=== PATIENT | male | born 1995 | race Caucasian/White ===

== ENCOUNTER 2017-04-01 12:22 | Emergency (ER) | payer OTHER ==
[2017-04-01 12:23] VITALS: BMI 21.9
[2017-04-01 12:44] VITALS: BP 132/72; PULSE 88; RESP 17; TEMP 98.2; O2SAT 100
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
== END 2017-04-01 13:57 | disposition home or self-care (01) ==
LOC: H.ER 12:22
DX: B00.9 Herpesviral infection, unspecified (principal); S09.93XA Unspecified injury of face, initial encounter; Y04.0XXA Assault by unarmed brawl or fight, initial encounter; Y92.89 Other specified places as the place of occurrence of the external cause

== ENCOUNTER 2017-05-02 19:48 | Emergency (ER) | payer OTHER ==
[2017-05-02 19:48] VITALS: BMI 21.9
[2017-05-02 19:56] VITALS: BP 190/65; PULSE 76; RESP 16; TEMP 98.3; O2SAT 100
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
== END 2017-05-02 22:09 | disposition home or self-care (01) ==
LOC: H.ER 19:48
DX: S09.90XA Unspecified injury of head, initial encounter (principal); M54.5 Low back pain; Y04.0XXA Assault by unarmed brawl or fight, initial encounter; Y92.89 Other specified places as the place of occurrence of the external cause

== ENCOUNTER 2017-05-03 10:11 | Emergency (ER) | payer OTHER ==
[2017-05-03 10:17] VITALS: BMI 22.5
[2017-05-03 10:18] VITALS: BP 116/63; PULSE 67; RESP 17; TEMP 98.1; O2SAT 97
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
== END 2017-05-03 12:15 | disposition home or self-care (01) ==
LOC: H.ER 10:11
DX: M54.9 Dorsalgia, unspecified (principal)

== ENCOUNTER 2017-09-06 19:09 | Emergency (ER) | payer OTHER ==
[2017-09-06 19:10] VITALS: BMI 22.5
[2017-09-06 19:16] VITALS: BP 150/72; PULSE 85; RESP 18; TEMP 98.4; O2SAT 99
[2017-09-06 20:31] LABS: BASO % 0.7 % (0.0-2.0); EOS # 0.3 K/uL (0.0-0.7); EOS % 5.1 % (0.0-4.0); HEMATOCRIT 38.8 % (35.0-51.0); LYMPH # 1.9 K/uL (1.0-4.3); MEAN CORPUSCULAR HEMOGLOBIN 28.5 pg (27.0-31.0); MEAN CORPUSCULAR HGB CONC 32.8 g/dL (33.0-37.0); MEAN PLATELET VOLUME 7.8 fl (7.2-11.7); MONO # 0.4 K/uL (0.0-0.8); MONO % 7.6 % (0.0-10.0); NEUT # 2.9 K/uL (1.8-7.0); NEUT % 52.6 % (50.0-75.0); RED CELL DISTRIBUTION WIDTH 13.6 % (11.5-14.5); WHITE BLOOD COUNT 5.5 K/uL (4.8-10.8)
[2017-09-06 20:32] LABS: RBC URINE < 1 /hpf (0-3); URINE BILIRUBIN NEGATIVE (NEGATIVE); URINE BLOOD NEGATIVE (NEGATIVE); URINE COLOR YELLOW (YELLOW); URINE GLUCOSE (UA) NEG (Normal); URINE KETONE NEGATIVE (NEGATIVE); URINE LEUKOCYTE ESTERASE NEG Leu/uL (Negative); URINE PROTEIN 30 mg/dL (NEGATIVE); URINE UROBILINOGEN 0.2-1.0 mg/dL (0.2-1.0); WBC URINE < 1 /hpf (0-5)
[2017-09-06 20:43] LABS: ALB/GLOB RATIO 1.5 (1.0-2.1); ALKALINE PHOSPHATASE 63 U/L (38-126); ALT/SGPT 33 U/L (21-72); AST/SGOT 20 U/L (17-59); BILIRUBIN,TOTAL 0.4 mg/dl (0.2-1.3); BLOOD UREA NITROGEN 13 mg/dl (9-20); CALCIUM 8.8 mg/dL (8.4-10.2); CARBON DIOXIDE 25 mmol/L (22-30); CHLORIDE 109 mmol/L (98-107); GFR AFRICAN-AMERICAN > 60; GLUCOSE,RANDOM 89 mg/dL (75-110); POTASSIUM 3.8 MMOL/L (3.6-5.0); SODIUM 143 mmol/l (132-148); TOTAL PROTEIN 7.1 G/DL (6.3-8.2)
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
--- NOTE | 2017-09-07 05:32 | CT ---
PROCEDURE: CT HEAD WITHOUT CONTRAST. HISTORY: Lightheadedness COMPARISON: None available. TECHNIQUE: Axial computed tomography images were obtained through the head/brain without intravenous contrast. Radiation dose: Total exam DLP = 85.57 mGy-cm. This CT exam was performed using one or more of the following dose reduction techniques: Automated exposure control, adjustment of the mA and/or kV according to patient size, and/or use of iterative reconstruction technique. FINDINGS: HEMORRHAGE: No intracranial hemorrhage. BRAIN: No mass effect or edema. No atrophy or chronic microvascular ischemic changes. VENTRICLES: Unremarkable. No hydrocephalus. CALVARIUM: Unremarkable. PARANASAL SINUSES: Unremarkable as visualized. No significant inflammatory changes. MASTOID AIR CELLS: Unremarkable as visualized. No inflammatory changes. OTHER FINDINGS: None. IMPRESSION: No acute intracranial abnormalities. No significant findings to account for the clinical presentation. Concordant results (preliminary interpretation) provided by [facility]. Procedure Completed: 20:57 Preliminary ([facility]) Report: Dictated and Authenticated: 21:17 Final Interpretation: 05:31. September 07, 2017.
--- NOTE | 2017-09-07 12:06 | CARD ---
APPROVED REPORT EKG Measurement Heart [id number] <Conclusion> Normal sinus rhythm
== END 2017-09-06 22:46 | disposition home or self-care (01) ==
LOC: H.ER 19:09
DX: R42 Dizziness and giddiness (principal); J45.909 Unspecified asthma, uncomplicated

== ENCOUNTER 2017-09-07 00:04 | Emergency (ER) | payer OTHER ==
[2017-09-07 00:04] VITALS: BMI 22.5
[2017-09-07 00:40] VITALS: BP 144/71; PULSE 70; RESP 18; TEMP 98.2; O2SAT 97
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
== END 2017-09-07 01:25 | disposition home or self-care (01) ==
LOC: H.ER 00:04
DX: S09.90XA Unspecified injury of head, initial encounter (principal); V43.62XA Car passenger injured in collision with other type car in traffic accident, initial encounter; Y92.410 Unspecified street and highway as the place of occurrence of the external cause; J45.909 Unspecified asthma, uncomplicated

== ENCOUNTER 2017-11-09 11:30 | Emergency (ER) | payer OTHER ==
[2017-11-09 11:30] VITALS: BMI 22.5
[2017-11-09 11:54] VITALS: BP 133/58; PULSE 74; RESP 20; TEMP 98.6; O2SAT 98
--- NOTE | 2017-11-09 12:39 | ED PDOC ---
HPI: Back Time Seen by Provider: 11/09/17 12:24 Chief Complaint (Nursing): Back Pain Chief Complaint (Provider): Back Pain History Per: Patient History/Exam Limitations: no limitations Onset/Duration Of Symptoms: Days (x yesterday) Current Symptoms Are (Timing): Still Present Additional Complaint(s): Mr. Schultz is a 22 year male who presents to the emergency department with neck pain that radiates to back, onset yesterday. Patient states he was playing basketball where he jumped and felt pain to his neck. Patient denies head injury or loss of consciousness. Patient reports he applied icy hot. Patient also reports his father tried cracking his back, but with no relief. Denies taking any medications for pain. PMD: No Family Provider Past Medical History Reviewed: Historical Data, Nursing Documentation, Vital Signs Vital Signs: Last Vital Signs Temp 98.6 F 11/09/17 11:52 Pulse 74 11/09/17 11:52 Resp 20 11/09/17 11:52 BP 133/58 L 11/09/17 11:52 Pulse Ox 98 11/09/17 11:52 - Medical History PMH: Asthma (when child) - Surgical History Surgical History: No Surg Hx - Family History Family History: States: Unknown Family Hx - Immunization History Hx Tetanus Toxoid Vaccination: Yes Hx Influenza Vaccination: No Hx Pneumococcal Vaccination: No - Home Medications Home Medications: Ambulatory Orders Medication Instructions Recorded Amoxicillin/Clavulanate [Augmentin 1 tab PO BID #14 tab 08/16/16 875 MG-125 MG] Ibuprofen [Motrin Tab] 600 mg PO Q8 #30 tab 08/16/16 Oxymetazoline 0.05% [Afrin 0.05%] 1 spr NS Q12H #1 bottle 08/16/16 Amoxicillin/Clavulanate [Augmentin 1 tab PO BID #14 tab 08/17/16 875 MG-125 MG] Oxymetazoline 0.05% [Oxymetazoline 1 ml NS BID #1 bottle 08/17/16 HCl 30 Ml] traMADol [Ultram] 50 mg PO TID #7 tab 08/17/16 Acyclovir 5% [Zovirax 5% Oint] 1 cre TP BID #1 tube 04/01/17 Cyclobenzaprine [Cyclobenzaprine 10 mg PO TID PRN #20 tab 05/03/17 HCl] Naproxen [Naprosyn] 500 mg PO BID #20 tab 05/03/17 Naproxen 1 tab PO Q12 PRN #14 tab 11/09/17 diaZEpam [Valium] 5 mg PO Q6 PRN #2 tab 11/09/17 - Allergies Allergies/Adverse Reactions: Allergies Allergy/AdvReac Type Severity Reaction Status Date / Time apple Allergy throat Verified 11/09/17 11:52 swelling banana Allergy throat Verified 11/09/17 11:52 swelling strawberry Allergy throat Verified 11/09/17 11:52 swelling Review of Systems ROS Statement: Except As Marked, All Systems Reviewed And Found Negative Musculoskeletal: Positive for: Neck Pain, Back Pain Neurological: Negative for: Other (loss of consciousness) Physical Exam - Reviewed Nursing Documentation Reviewed: Yes Vital Signs Reviewed: Yes - Physical Exam Appears: Positive for: Non-toxic Head Exam: Positive for: ATRAUMATIC, NORMAL INSPECTION, NORMOCEPHALIC Skin: Positive for: Normal Color, Warm, Dry Eye Exam: Positive for: Normal appearance ENT: Positive for: Normal ENT Inspection Neck: Negative for: Normal ((+): Tenderness to right trapezius muscle lateral neck with no bony tenderness) Cardiovascular/Chest: Positive for: Regular Rate, Rhythm Respiratory: Positive for: Normal Breath Sounds. Negative for: Respiratory Distress Gastrointestinal/Abdominal: Positive for: Normal Exam Back: Positive for: Normal Inspection Extremity: Positive for: Normal ROM. Negative for: Deformity Neurologic/Psych: Positive for: Alert, Oriented (x 3) - ECG O2 Sat by Pulse Oximetry: 98 (RA) Pulse Ox Interpretation: Normal Medical Decision Making Medical Decision Making: Upon provider evaluation patient is medically stable, and requires no further treatment in the ED at this time. Patient will be discharged with Rx for Naproxen. Counseling was provided and all questions were answered regarding diagnosis and need for follow up with PCP. There is agreement to discharge plan. Return if symptoms persist or worsen. Scribe Attestation: Documented by Manuel Gagnon, acting as a scribe for Enrike Barnes PA-C. Provider Scribe Attestation: All medical record entries made by the Scribe were at my direction and personally dictated by me. I have reviewed the chart and agree that the record accurately reflects my personal performance of the history, physical exam, medical decision making, and the department course for this patient. I have also personally directed, reviewed, and agree with the discharge instructions and disposition. Disposition - Clinical Impression Clinical Impression: Trapezius muscle strain - Patient ED Disposition Is Patient to be Admitted: No - Disposition Referrals: [facility] [Outside] Disposition: Routine/Home Disposition Time: 12:37 Condition: STABLE Prescriptions: diaZEpam [Valium] 5 mg PO Q6 PRN #2 tab PRN Reason: Muscle Spasm Naproxen 1 tab PO Q12 PRN #14 tab PRN Reason: Pain, Moderate (4-7) Instructions: Muscle Strain (ED) Forms: [employer] ([place]), [facility] ED School/Work Excuse
== END 2017-11-09 13:04 | disposition home or self-care (01) ==
LOC: H.ER 11:30
DX: M54.9 Dorsalgia, unspecified (principal); X50.9XXA Other and unspecified overexertion or strenuous movements or postures, initial encounter; Y93.67 Activity, basketball; J45.909 Unspecified asthma, uncomplicated

== ENCOUNTER 2018-02-04 16:03 | Emergency (ER) | payer SELFPAY ==
[2018-02-04 16:03] VITALS: BMI 22.5
[2018-02-04 16:14] VITALS: BP 128/67; PULSE 71; RESP 20; TEMP 97.9; O2SAT 98
--- NOTE | 2018-02-04 16:22 | ED PDOC ---
HPI: General Adult Time Seen by Provider: 02/04/18 16:15 Chief Complaint (Nursing): ENT Problem Chief Complaint (Provider): Nasal congestion, sore throat x 3 days History Per: Patient History/Exam Limitations: no limitations Onset/Duration Of Symptoms: Days Have you had recent travel within the past 21 days to any of the following countries: [place], [place], [place] or [place]?: No Current Symptoms Are (Timing): Still Present Additional Complaint(s): No fever/chills. Pt has not tried anything for symptoms. Pt otherwise feels well. Past Medical History Reviewed: Historical Data, Nursing Documentation, Vital Signs Vital Signs: Last Vital Signs Temp 97.9 F 02/04/18 16:12 Pulse 71 02/04/18 16:12 Resp 20 02/04/18 16:12 BP 128/67 02/04/18 16:12 Pulse Ox 98 02/04/18 16:12 - Medical History PMH: Asthma (when child) - Surgical History Surgical History: No Surg Hx - Family History Family History: States: Unknown Family Hx - Living Arrangements Living Arrangements: With Family - Social History Current smoker - smoking cessation education provided: No - Immunization History Hx Tetanus Toxoid Vaccination: Yes Hx Influenza Vaccination: No Hx Pneumococcal Vaccination: No - Home Medications Home Medications: Ambulatory Orders Medication Instructions Recorded Amoxicillin/Clavulanate [Augmentin 1 tab PO BID #14 tab 08/16/16 875 MG-125 MG] Ibuprofen [Motrin Tab] 600 mg PO Q8 #30 tab 08/16/16 Oxymetazoline 0.05% [Afrin 0.05%] 1 spr NS Q12H #1 bottle 08/16/16 Amoxicillin/Clavulanate [Augmentin 1 tab PO BID #14 tab 08/17/16 875 MG-125 MG] Oxymetazoline 0.05% [Oxymetazoline 1 ml NS BID #1 bottle 08/17/16 HCl 30 Ml] traMADol [Ultram] 50 mg PO TID #7 tab 08/17/16 Acyclovir 5% [Zovirax 5% Oint] 1 cre TP BID #1 tube 04/01/17 Cyclobenzaprine [Cyclobenzaprine 10 mg PO TID PRN #20 tab 05/03/17 HCl] Naproxen [Naprosyn] 500 mg PO BID #20 tab 05/03/17 Naproxen 1 tab PO Q12 PRN #14 tab 11/09/17 diaZEpam [Valium] 5 mg PO Q6 PRN #2 tab 11/09/17 Fexofenadine/Pseudoephedrine 1 each PO BID PRN #12 tab.er.12h 02/04/18 [Anabella-D 12 Hour Tablet] - Allergies Allergies/Adverse Reactions: Allergies Allergy/AdvReac Type Severity Reaction Status Date / Time apple Allergy throat Verified 02/04/18 16:11 swelling banana Allergy throat Verified 02/04/18 16:11 swelling strawberry Allergy throat Verified 11/09/17 11:52 swelling Review of Systems ROS Statement: Except As Marked, All Systems Reviewed And Found Negative Constitutional: Negative for: Fever, Chills ENT: Positive for: Nose Congestion, Throat Pain Physical Exam - Reviewed Nursing Documentation Reviewed: Yes Vital Signs Reviewed: Yes - Physical Exam Appears: Positive for: Well, Non-toxic, No Acute Distress Head Exam: Positive for: ATRAUMATIC, NORMAL INSPECTION, NORMOCEPHALIC Skin: Positive for: Normal Color, Warm, DRY Eye Exam: Positive for: Normal appearance ENT: Positive for: Normal ENT Inspection ((+) post nasal drip) Neck: Positive for: Normal, Painless ROM Cardiovascular/Chest: Positive for: Regular Rate, Rhythm Respiratory: Positive for: CNT, Normal Breath Sounds Gastrointestinal/Abdominal: Positive for: Normal Exam, Soft Back: Positive for: Normal Inspection Extremity: Positive for: Normal ROM Neurologic/Psych: Positive for: Alert, Oriented - ECG O2 Sat by Pulse Oximetry: 98 Disposition - Clinical Impression Clinical Impression: Allergic rhinitis - Patient ED Disposition Is Patient to be Admitted: No Counseled Patient/Family Regarding: Diagnosis, Need For Followup, Rx Given - Disposition Disposition: Routine/Home Disposition Time: 16:22 Condition: STABLE Prescriptions: Fexofenadine/Pseudoephedrine [Anabella-D 12 Hour Tablet] 1 each PO BID PRN #12 tab.er.12h PRN Reason: Cough And Congestion Instructions: Seasonal Allergies in Adults
== END 2018-02-04 16:59 | disposition home or self-care (01) ==
LOC: H.ER 16:03
DX: J30.9 Allergic rhinitis, unspecified (principal)

== ENCOUNTER 2018-02-10 08:04 | Emergency (ER) | payer OTHER ==
[2018-02-10 08:04] VITALS: BMI 22.5
[2018-02-10 08:08] VITALS: TEMP 97.9; O2SAT 98
--- NOTE | 2018-02-10 09:46 | ED PDOC ---
Lower Extremity Pain/Injury Time Seen by Provider: 02/10/18 08:29 Chief Complaint (Nursing): Abnormal Skin Integrity Chief Complaint (Provider): Suture Removal History Per: Patient History/Exam Limitations: no limitations Past Medical History Reviewed: Historical Data, Nursing Documentation, Vital Signs Vital Signs: Last Vital Signs Temp 97.9 F 02/10/18 08:06 Pulse 68 02/10/18 08:06 Resp 20 02/10/18 08:06 BP 105/65 02/10/18 08:06 Pulse Ox 98 02/10/18 08:06 - Medical History PMH: Asthma (when child) - Family History Family History: States: Unknown Family Hx - Social History Current smoker - smoking cessation education provided: Yes Ex-Smoker (has not smoked in the last 12 months): No Drugs: Other ([place]) - Immunization History Hx Tetanus Toxoid Vaccination: Yes Hx Influenza Vaccination: No Hx Pneumococcal Vaccination: No - Home Medications Home Medications: Ambulatory Orders Medication Instructions Recorded Amoxicillin/Clavulanate [Augmentin 1 tab PO BID #14 tab 08/16/16 875 MG-125 MG] Ibuprofen [Motrin Tab] 600 mg PO Q8 #30 tab 08/16/16 Oxymetazoline 0.05% [Afrin 0.05%] 1 spr NS Q12H #1 bottle 08/16/16 Amoxicillin/Clavulanate [Augmentin 1 tab PO BID #14 tab 08/17/16 875 MG-125 MG] Oxymetazoline 0.05% [Oxymetazoline 1 ml NS BID #1 bottle 08/17/16 HCl 30 Ml] traMADol [Ultram] 50 mg PO TID #7 tab 08/17/16 Acyclovir 5% [Zovirax 5% Oint] 1 cre TP BID #1 tube 04/01/17 Cyclobenzaprine [Cyclobenzaprine 10 mg PO TID PRN #20 tab 05/03/17 HCl] Naproxen [Naprosyn] 500 mg PO BID #20 tab 05/03/17 Naproxen 1 tab PO Q12 PRN #14 tab 11/09/17 diaZEpam [Valium] 5 mg PO Q6 PRN #2 tab 11/09/17 Fexofenadine/Pseudoephedrine 1 each PO BID PRN #12 tab.er.12h 02/04/18 [Anabella-D 12 Hour Tablet] Cephalexin [cephalexin] 500 mg PO BID #14 cap 02/10/18 Mupirocin 2% Cream [Bactroban 1 applic EXT BID #1 tube 02/10/18 Cream] Sulfamethoxazole/Trimethoprim 1 tab PO BID #14 tab 02/10/18 [Bactrim SS 400 mg-80 mg] - Allergies Allergies/Adverse Reactions: Allergies Allergy/AdvReac Type Severity Reaction Status Date / Time apple Allergy throat Verified 02/04/18 16:11 swelling banana Allergy throat Verified 02/04/18 16:11 swelling strawberry Allergy throat Verified 11/09/17 11:52 swelling Review of Systems ROS Statement: Except As Marked, All Systems Reviewed And Found Negative Constitutional: Negative for: Fever Musculoskeletal: Negative for: Leg Pain (right) Physical Exam - Reviewed Nursing Documentation Reviewed: Yes Vital Signs Reviewed: Yes - Physical Exam Appears: Positive for: Non-toxic, No Acute Distress Head Exam: Positive for: ATRAUMATIC, NORMOCEPHALIC Extremity: Positive for: Normal ROM, Other (Normal wound, no redness or discharge.). Negative for: Swelling (of right leg.) Neurologic/Psych: Positive for: Alert, Oriented - ECG O2 Sat by Pulse Oximetry: 98 (RA) Pulse Ox Interpretation: Normal Disposition - Clinical Impression Clinical Impression: Rash, Cellulitis of axilla, right - Disposition Referrals: [facility] [Outside] Additional Instructions: Take your medications as instructed. Follow up with your PCP in 2-3 days. Return for worsening 2 days. Prescriptions: Cephalexin [cephalexin] 500 mg PO BID #14 cap Mupirocin 2% Cream [Bactroban Cream] 1 applic EXT BID #1 tube Sulfamethoxazole/Trimethoprim [Bactrim SS 400 mg-80 mg] 1 tab PO BID #14 tab Instructions: Cellulitis and Erysipelas (Skin Infections)
--- NOTE | 2018-02-10 10:17 | ED PDOC ---
Upper Extremity Pain/Injury Time Seen by Provider: 02/10/18 08:29 Chief Complaint (Nursing): Abnormal Skin Integrity Chief Complaint (Provider): Abnormal Skin Integrity History Per: Patient History/Exam Limitations: no limitations Onset/Duration Of Symptoms: Days (x 4) Quality: Burning Additional Complaint(s): 23 years old male presents to the ED with complaints of spread burning rash to the right axilla associated with pain onset 4 days. Patient denies any injuries or the use of new personal products. PMD: non provided Past Medical History Reviewed: Historical Data, Nursing Documentation, Vital Signs Vital Signs: Last Vital Signs Temp 97.9 F 02/10/18 08:06 Pulse 68 02/10/18 08:06 Resp 20 02/10/18 08:06 BP 105/65 02/10/18 08:06 Pulse Ox 98 02/10/18 08:06 - Medical History PMH: Asthma (when child) - Surgical History Surgical History: No Surg Hx - Family History Family History: States: Unknown Family Hx - Social History Current smoker - smoking cessation education provided: Yes Alcohol: None Drugs: Other ([place]) - Immunization History Hx Tetanus Toxoid Vaccination: Yes Hx Influenza Vaccination: No Hx Pneumococcal Vaccination: No - Home Medications Home Medications: Ambulatory Orders Medication Instructions Recorded Amoxicillin/Clavulanate [Augmentin 1 tab PO BID #14 tab 08/16/16 875 MG-125 MG] Ibuprofen [Motrin Tab] 600 mg PO Q8 #30 tab 08/16/16 Oxymetazoline 0.05% [Afrin 0.05%] 1 spr NS Q12H #1 bottle 08/16/16 Amoxicillin/Clavulanate [Augmentin 1 tab PO BID #14 tab 08/17/16 875 MG-125 MG] Oxymetazoline 0.05% [Oxymetazoline 1 ml NS BID #1 bottle 08/17/16 HCl 30 Ml] traMADol [Ultram] 50 mg PO TID #7 tab 08/17/16 Acyclovir 5% [Zovirax 5% Oint] 1 cre TP BID #1 tube 04/01/17 Cyclobenzaprine [Cyclobenzaprine 10 mg PO TID PRN #20 tab 05/03/17 HCl] Naproxen [Naprosyn] 500 mg PO BID #20 tab 05/03/17 Naproxen 1 tab PO Q12 PRN #14 tab 11/09/17 diaZEpam [Valium] 5 mg PO Q6 PRN #2 tab 11/09/17 Fexofenadine/Pseudoephedrine 1 each PO BID PRN #12 tab.er.12h 02/04/18 [Anabella-D 12 Hour Tablet] Cephalexin [cephalexin] 500 mg PO BID #14 cap 02/10/18 Mupirocin 2% Cream [Bactroban 1 applic EXT BID #1 tube 02/10/18 Cream] Sulfamethoxazole/Trimethoprim 1 tab PO BID #14 tab 02/10/18 [Bactrim SS 400 mg-80 mg] - Allergies Allergies/Adverse Reactions: Allergies Allergy/AdvReac Type Severity Reaction Status Date / Time apple Allergy throat Verified 02/04/18 16:11 swelling banana Allergy throat Verified 02/04/18 16:11 swelling strawberry Allergy throat Verified 11/09/17 11:52 swelling Review of Systems ROS Statement: Except As Marked, All Systems Reviewed And Found Negative Skin: Positive for: Rash (to right axilla) Physical Exam - Reviewed Nursing Documentation Reviewed: Yes - Physical Exam Appears: Positive for: Non-toxic, No Acute Distress Head Exam: Positive for: ATRAUMATIC, NORMOCEPHALIC Skin: Positive for: Rash (Diffused eythema to right axilla area with multiple pustules. No absecess) Extremity: Negative for: Tenderness, Swelling Neurologic/Psych: Positive for: Alert, Oriented - ECG O2 Sat by Pulse Oximetry: 98 (RA) Pulse Ox Interpretation: Normal Medical Decision Making Medical Decision Making: Initial impression: cellulitis of right axilla. Scribe Attestation: Documented by Amena Chtaman, acting as a scribe for Anna Valdez MD. Provider Scribe Attestation: All medical record entries made by the Scribe were at my direction and personally dictated by me. I have reviewed the chart and agree that the record accurately reflects my personal performance of the history, physical exam, medical decision making, and the department course for this patient. I have also personally directed, reviewed, and agree with the discharge instructions and disposition. Disposition - Clinical Impression Clinical Impression: Rash, Cellulitis of axilla, right - Patient ED Disposition Is Patient to be Admitted: No Counseled Patient/Family Regarding: Studies Performed, Diagnosis, Need For Followup - Disposition Referrals: [facility] [Outside] Disposition: Routine/Home Disposition Time: 09:00 Condition: GOOD Additional Instructions: Take your medications as instructed. Follow up with your PCP in 2-3 days. Return for worsening 2 days. Prescriptions: Cephalexin [cephalexin] 500 mg PO BID #14 cap Mupirocin 2% Cream [Bactroban Cream] 1 applic EXT BID #1 tube Sulfamethoxazole/Trimethoprim [Bactrim SS 400 mg-80 mg] 1 tab PO BID #14 tab Instructions: Cellulitis and Erysipelas (Skin Infections)
[2018-02-10 10:22] VITALS: BP 110/70; PULSE 72; RESP 18
== END 2018-02-10 10:18 | disposition home or self-care (01) ==
LOC: H.ER 08:04
DX: L03.111 Cellulitis of right axilla (principal); R21 Rash and other nonspecific skin eruption; F17.200 Nicotine dependence, unspecified, uncomplicated; J45.909 Unspecified asthma, uncomplicated

== ENCOUNTER 2018-02-27 14:35 | Emergency (ER) | payer SELFPAY ==
[2018-02-27 14:35] VITALS: BMI 22.5
[2018-02-27 14:49] VITALS: BP 108/66; PULSE 72; RESP 16; TEMP 96; O2SAT 98
[2018-02-27] MEDS ORDERED: PROPARACAINE/FLUORESCEIN SOD 100 DROP/5 ML BOTTLE OU STA (15:23)
--- NOTE | 2018-02-27 15:57 | ED PDOC ---
HPI: Eye Injury/Pain Time Seen by Provider: 02/27/18 14:56 Chief Complaint (Nursing): Eye Problem Chief Complaint (Provider): left eye discomfort History Per: Patient History/Exam Limitations: no limitations Onset/Duration Of Symptoms: Days (x1) Current Symptoms Are (Timing): Still Present Injury To Eye?: Yes Additional Complaint(s): 23 y/o male presents to the ED for a left eye problem. Patient states he was removing his contacts last night when he accidentally scratched his left eye. He states he has not put contacts in either eyes since last night. Patient is complaining of left eye irritation and states he can't open his left eye completely due to sensitivity to light. He denies any vision change. PMD: none Past Medical History Reviewed: Historical Data, Nursing Documentation, Vital Signs Vital Signs: Last Vital Signs Temp 96 F L 02/27/18 14:46 Pulse 72 02/27/18 14:46 Resp 16 02/27/18 14:46 BP 108/66 02/27/18 14:46 Pulse Ox 98 02/27/18 14:46 - Medical History PMH: No Chronic Diseases - Surgical History Surgical History: No Surg Hx - Family History Family History: States: No Known Family Hx - Living Arrangements Living Arrangements: With Family - Social History Current smoker - smoking cessation education provided: Yes Ex-Smoker (has not smoked in the last 12 months): No Alcohol: Social Drugs: Cannabis - Home Medications Home Medications: Ambulatory Orders Medication Instructions Recorded Amoxicillin/Clavulanate [Augmentin 1 tab PO BID #14 tab 08/16/16 875 MG-125 MG] Ibuprofen [Motrin Tab] 600 mg PO Q8 #30 tab 08/16/16 Oxymetazoline 0.05% [Afrin 0.05%] 1 spr NS Q12H #1 bottle 08/16/16 Amoxicillin/Clavulanate [Augmentin 1 tab PO BID #14 tab 08/17/16 875 MG-125 MG] Oxymetazoline 0.05% [Oxymetazoline 1 ml NS BID #1 bottle 08/17/16 HCl 30 Ml] traMADol [Ultram] 50 mg PO TID #7 tab 08/17/16 Acyclovir 5% [Zovirax 5% Oint] 1 cre TP BID #1 tube 04/01/17 Cyclobenzaprine [Cyclobenzaprine 10 mg PO TID PRN #20 tab 05/03/17 HCl] Naproxen [Naprosyn] 500 mg PO BID #20 tab 05/03/17 Naproxen 1 tab PO Q12 PRN #14 tab 11/09/17 diaZEpam [Valium] 5 mg PO Q6 PRN #2 tab 11/09/17 Fexofenadine/Pseudoephedrine 1 each PO BID PRN #12 tab.er.12h 02/04/18 [Anabella-D 12 Hour Tablet] Cephalexin [cephalexin] 500 mg PO BID #14 cap 02/10/18 Mupirocin 2% Cream [Bactroban 1 applic EXT BID #1 tube 02/10/18 Cream] Sulfamethoxazole/Trimethoprim 1 tab PO BID #14 tab 02/10/18 [Bactrim SS 400 mg-80 mg] Tobramycin [Tobrex] 5 ml TOP QID #1 bottle 02/27/18 - Allergies Allergies/Adverse Reactions: Allergies Allergy/AdvReac Type Severity Reaction Status Date / Time apple Allergy throat Verified 02/27/18 14:46 swelling banana Allergy throat Verified 02/27/18 14:46 swelling strawberry Allergy throat Verified 02/27/18 14:46 swelling Review of Systems ROS Statement: Except As Marked, All Systems Reviewed And Found Negative Eyes: Positive for: Other (Left eye irritation). Negative for: Vision Change Neurological: Negative for: Headache, Dizziness Physical Exam - Reviewed Nursing Documentation Reviewed: Yes Vital Signs Reviewed: Yes - Physical Exam Appears: Positive for: Well, Non-toxic, No Acute Distress Head Exam: Positive for: ATRAUMATIC, NORMAL INSPECTION, NORMOCEPHALIC Skin: Positive for: Normal Color. Negative for: Rash Eye Exam: Positive for: EOMI, PERRL, Other (mild conjunctival injection noted to left eye with no periorbital swelling or gross FB) ENT: Positive for: Normal ENT Inspection Neurologic/Psych: Positive for: Alert, Oriented - ECG O2 Sat by Pulse Oximetry: 98 (RA) Pulse Ox Interpretation: Normal Medical Decision Making Medical Decision Making: Time: 14:46 Impression: 23 y/o male with left eye irritation Procedure Note: 2 drops of flucaine applied to left eye. Examination with UV light demonstrates cornea abrasion at 1:00 o'clock. No foreign body noted upon lid eversion. Procedure was tolerated well with no complications. Patient was instructed to refrain from use of contact lenses until seen by meter repairer and cleared to resume use. Will be sent home with prescription for Tobramycin drops. Scribe Attestation: Documented by Randa Chisholm acting as a scribe Madhuri Smith PA-C. MD Scribe Attestation: All medical record entries made by the Scribe were at my direction and personally dictated by me. I have reviewed the chart and agree that the record accurately reflects my personal performance of the history, physical exam, medical decision making, and the department course for this patient. I have also personally directed, reviewed, and agree with the discharge instructions and disposition. Disposition - Clinical Impression Clinical Impression: Corneal abrasion - Patient ED Disposition Is Patient to be Admitted: No Counseled Patient/Family Regarding: Diagnosis, Need For Followup, Rx Given - Disposition Referrals: Naveed Miguel MD [Staff Provider] - Disposition: Routine/Home Disposition Time: 16:13 Condition: STABLE Additional Instructions: APPLY DROPS DIRECTED. TYLENOL OR ADVIL FOR PAIN NEEDED. DO NOT USE CONTACTS UNTIL SEEN BY HOOK LOADER AND CLEARED TO RESUME USE. FOLLOW UP IN 2 -3 DAYS WITH HOOK LOADER. Prescriptions: Tobramycin [Tobrex] 5 ml TOP QID #1 bottle Instructions: Corneal Abrasion (DC) Forms: [employer] ([place])
== END 2018-02-27 16:17 | disposition home or self-care (01) ==
LOC: H.ER 14:35
DX: S05.02XA Injury of conjunctiva and corneal abrasion without foreign body, left eye, initial encounter (principal); Y92.89 Other specified places as the place of occurrence of the external cause

== ENCOUNTER 2018-03-24 02:18 | Emergency (ER) | payer OTHER ==
[2018-03-24 02:19] VITALS: BMI 22.5
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
[2018-03-24 05:12] VITALS: BP 119/68; PULSE 71; RESP 17; TEMP 98.2; O2SAT 100
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
== END 2018-03-24 04:54 | disposition home or self-care (01) ==
LOC: H.ER 02:18
DX: S20.211A Contusion of right front wall of thorax, initial encounter (principal); Y04.0XXA Assault by unarmed brawl or fight, initial encounter; Y92.89 Other specified places as the place of occurrence of the external cause

== ENCOUNTER 2018-03-28 07:28 | Emergency (ER) | payer OTHER ==
[2018-03-28 07:28] VITALS: BMI 22.5
[2018-03-28 07:39] VITALS: TEMP 97.1
[2018-03-28] MEDS ORDERED: Sodium Chloride 0.9% 1,000 ML IV STA (08:03)
[2018-03-28] MEDS ORDERED: Famotidine 20mg/50ml 20 MG/50 ML BAG IVPB ONE ×2 (08:09→08:15)
[2018-03-28 08:28] LABS: BASO # 0.1 K/uL (0.0-0.2); BASO % 0.9 % (0.0-2.0); EOS # 0.2 K/uL (0.0-0.7); EOS % 2.5 % (0.0-4.0); HEMOGLOBIN 13.8 g/dL (12.0-18.0); LYMPH # 2.8 K/uL (1.0-4.3); LYMPH % 40.7 % (20.0-40.0); MEAN CELL VOLUME 83.6 fl (80.0-94.0); MEAN CORPUSCULAR HEMOGLOBIN 29.8 pg (27.0-31.0); MEAN CORPUSCULAR HGB CONC 35.7 g/dL (33.0-37.0); MEAN PLATELET VOLUME 7.1 fl (7.2-11.7); MONO # 0.6 K/uL (0.0-0.8); NEUT # 3.3 K/uL (1.8-7.0); NEUT % 47.9 % (50.0-75.0); NRBC % 0.3 % (0.0-0.0); RBC 4.64 Mil/uL (4.40-5.90); RED CELL DISTRIBUTION WIDTH 14.2 % (11.5-14.5)
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
[2018-03-28 09:03] LABS: ALB/GLOB RATIO 1.5 (1.0-2.1); ALT/SGPT 43 U/L (21-72); AST/SGOT 39 U/L (17-59); BLOOD UREA NITROGEN 17 mg/dl (9-20); CALCIUM 9.7 mg/dL (8.4-10.2); GFR AFRICAN-AMERICAN > 60; GFR NON-AFRICAN AMERICAN > 60; LIPASE 48 U/L (23-300)
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
[2018-03-28 14:13] VITALS: BP 111/59; PULSE 65; RESP 18
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
[2018-03-29 10:42] VITALS: O2SAT 98
== END 2018-03-28 15:05 | disposition home or self-care (01) ==
LOC: H.ER 07:28
DX: R10.9 Unspecified abdominal pain (principal); R11.10 Vomiting, unspecified
CPT/HCPCS: 74176; 80053; 83690; 85025; 96365; 96375; 99283; J2405; J7030

== ENCOUNTER 2018-05-01 02:19 | Emergency (ER) | payer OTHER ==
[2018-05-01 02:20] VITALS: BMI 22.5
[2018-05-01 02:39] VITALS: RESP 18
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
[2018-05-01 05:56] VITALS: BP 121/60; PULSE 60; TEMP 97.5
[2018-05-01 06:12] VITALS: O2SAT 96
--- NOTE | 2018-05-01 08:37 | RAD ---
Date of service: 05/01/2018 HISTORY: rib pain, R sided COMPARISON: Right ribs with chest 03/24/2018. TECHNIQUE: Chest PA and lateral FINDINGS: LUNGS: No active pulmonary disease. PLEURA: No significant pleural effusion identified. No pneumothorax apparent. CARDIOVASCULAR: Normal. OSSEOUS STRUCTURES: No significant abnormalities. VISUALIZED UPPER ABDOMEN: Normal. OTHER FINDINGS: None. IMPRESSION: No interval acute cardiopulmonary disease appreciated.
== END 2018-05-01 06:14 | disposition home or self-care (01) ==
LOC: H.ER 02:19
DX: R07.81 Pleurodynia (principal); F17.200 Nicotine dependence, unspecified, uncomplicated; J45.909 Unspecified asthma, uncomplicated
CPT/HCPCS: 71046; 96372; 99283; J1885

== ENCOUNTER 2018-06-14 15:25 | Emergency (ER) | payer OTHER ==
[2018-06-14 15:26] VITALS: BMI 22.5
[2018-06-14 15:33] VITALS: BP 121/72; PULSE 70; RESP 18; TEMP 98.4; O2SAT 99
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
--- NOTE | 2018-06-14 16:01 | RAD ---
PROCEDURE: Right Hand Radiographs. HISTORY: trauma COMPARISON: None. FINDINGS: BONES: Normal. No fracture. JOINTS: Normal. No osteoarthritic changes. SOFT TISSUES: Normal. OTHER FINDINGS: None. IMPRESSION: Normal right hand radiographs.
== END 2018-06-14 16:20 | disposition home or self-care (01) ==
LOC: H.ER 15:25
DX: S60.229A Contusion of unspecified hand, initial encounter (principal); S63.90XA Sprain of unspecified part of unspecified wrist and hand, initial encounter; F17.200 Nicotine dependence, unspecified, uncomplicated; Y09 Assault by unspecified means

== ENCOUNTER 2018-06-16 14:32 | Emergency (ER) | payer OTHER ==
[2018-06-16 14:32] VITALS: BMI 22.5
[2018-06-16 14:38] VITALS: BP 110/65; PULSE 68; RESP 18; TEMP 98; O2SAT 100
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
== END 2018-06-16 15:00 | disposition home or self-care (01) ==
LOC: H.ER 14:32
DX: S60.221A Contusion of right hand, initial encounter (principal); W22.8XXA Striking against or struck by other objects, initial encounter; Y92.89 Other specified places as the place of occurrence of the external cause

== ENCOUNTER 2018-07-06 13:37 | Emergency (ER) | payer OTHER ==
[2018-07-06 13:37] VITALS: BMI 22.5
[2018-07-06 13:48] VITALS: BP 117/58; PULSE 76; RESP 18; TEMP 98.1; O2SAT 97
--- NOTE | 2018-07-06 14:02 | ED PDOC ---
HPI: General Adult Time Seen by Provider: 07/06/18 13:51 Chief Complaint (Nursing): Medical Clearance Chief Complaint (Provider): Chlamydia exposure History Per: Patient History/Exam Limitations: no limitations Onset/Duration Of Symptoms: Hrs (earlier today) Current Symptoms Are (Timing): Still Present Additional Complaint(s): 23 year old male presents to the ED for evaluation of exposure to chlamydia. Patient's girlfriend is currently in the ED being treated for chlamydia which she was diagnosed with earlier today; gonorrhea was negative. He reports wanting treatment as well. Denies other sexual partners, penile discharge, dysuria, and penile lesions. PMD: none provided Past Medical History Reviewed: Historical Data, Nursing Documentation, Vital Signs Vital Signs: Last Vital Signs Temp 98.1 F 07/06/18 13:45 Pulse 76 07/06/18 13:45 Resp 18 07/06/18 13:45 BP 117/58 L 07/06/18 13:45 Pulse Ox 97 07/06/18 13:45 - Medical History PMH: Asthma (when child) - Surgical History Surgical History: No Surg Hx - Family History Family History: States: Unknown Family Hx - Immunization History Hx Tetanus Toxoid Vaccination: Yes Hx Influenza Vaccination: No Hx Pneumococcal Vaccination: No - Home Medications Home Medications: Ambulatory Orders Medication Instructions Recorded Naproxen 500 mg PO BID #30 tab 03/24/18 Lidocaine 1 each TP DAILY #10 adh..patch 05/01/18 - Allergies Allergies/Adverse Reactions: Allergies Allergy/AdvReac Type Severity Reaction Status Date / Time apple Allergy throat Verified 07/06/18 13:44 swelling banana Allergy throat Verified 07/06/18 13:44 swelling Review of Systems ROS Statement: Except As Marked, All Systems Reviewed And Found Negative Genitourinary Male: Negative for: Dysuria, Penile Discharge, Rash Physical Exam - Reviewed Nursing Documentation Reviewed: Yes Vital Signs Reviewed: Yes - Physical Exam Appears: Positive for: No Acute Distress Head Exam: Positive for: ATRAUMATIC, NORMOCEPHALIC Skin: Positive for: Normal Color, Warm, Dry. Negative for: Rash Eye Exam: Positive for: Normal appearance Cardiovascular/Chest: Positive for: Regular Rate, Rhythm Respiratory: Positive for: Normal Breath Sounds. Negative for: Accessory Muscle Use, Respiratory Distress Gastrointestinal/Abdominal: Positive for: Normal Exam, Soft. Negative for: Tenderness Male Genital Exam: Positive for: other (deferred) Neurologic/Psych: Positive for: Alert, Oriented (x3) - ECG O2 Sat by Pulse Oximetry: 97 (RA) Pulse Ox Interpretation: Normal Medical Decision Making Medical Decision Making: Time: 1352 Initial Impression: chlamydia exposure Initial Plan: --Zithromax 1000mg PO --Chlamydia/GC RNA,TMA --Pt advised to follow up with PMD for further STD and HIV testing. Informed to abstain from sexual contact for one week. Scribe Attestation: Documented by Avis Thomason, acting as a scribe for Tamanna Garcia PA-C. Provider Scribe Attestation: All medical record entries made by the Scribe were at my direction and personally dictated by me. I have reviewed the chart and agree that the record accurately reflects my personal performance of the history, physical exam, medical decision making, and the department course for this patient. I have also personally directed, reviewed, and agree with the discharge instructions and disposition. Disposition - Clinical Impression Clinical Impression: Chlamydia contact - Disposition Referrals: [facility] [Outside] Disposition: Routine/Home Disposition Time: 14:42 Condition: GOOD Additional Instructions: no sexual contact x 1 week, partners must be treated Instructions: General (DC), Chlamydia (DC) Forms: [employer] (Telugu)
== END 2018-07-06 15:00 | disposition home or self-care (01) ==
LOC: H.ER 13:37
DX: Z20.2 Contact with and (suspected) exposure to infections with a predominantly sexual mode of transmission (principal)

== ENCOUNTER 2018-08-29 14:15 | Emergency (ER) | payer OTHER ==
[2018-08-29 14:15] VITALS: BMI 22.5
[2018-08-29 14:35] VITALS: BP 112/69; PULSE 68; RESP 18; TEMP 97; O2SAT 98
--- NOTE | 2018-08-29 15:54 | ED PDOC ---
Lower Extremity Pain/Injury Time Seen by Provider: 08/29/18 15:24 Chief Complaint (Nursing): Lower Extremity Problem/Injury Chief Complaint (Provider): Lower Extremity Problem/Injury History Per: Patient History/Exam Limitations: no limitations Onset/Duration Of Symptoms: Days (x1 week ) Current Symptoms Are (Timing): Still Present Additional Complaint(s): Antoine Ramos is a 23 year old male with a past medical history of asthma, who presents to the emergency department complaining of x1 week of right knee pain. Patient states that he has had no direct injury or trauma and that the pain is worsened with walking and range of motion. He denies taking any medications for the pain. 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 Past Medical History Reviewed: Historical Data, Nursing Documentation, Vital Signs Vital Signs: Last Vital Signs Temp 97.0 F L 08/29/18 14:34 Pulse 68 08/29/18 14:34 Resp 18 08/29/18 14:34 BP 112/69 08/29/18 14:34 Pulse Ox 98 08/29/18 14:34 - Medical History PMH: Asthma (when child) - Surgical History Surgical History: No Surg Hx - Family History Family History: States: Unknown Family Hx - Immunization History Hx Tetanus Toxoid Vaccination: Yes Hx Influenza Vaccination: No Hx Pneumococcal Vaccination: No - Home Medications Home Medications: Ambulatory Orders Medication Instructions Recorded Naproxen 500 mg PO BID #30 tab 03/24/18 Lidocaine 1 each TP DAILY #10 adh..patch 05/01/18 Ibuprofen [Motrin Tab] 600 mg PO TID PRN #15 tab 08/29/18 - Allergies Allergies/Adverse Reactions: Allergies Allergy/AdvReac Type Severity Reaction Status Date / Time apple Allergy throat Verified 08/29/18 14:34 swelling banana Allergy throat Verified 08/29/18 14:34 swelling Review of Systems ROS Statement: Except As Marked, All Systems Reviewed And Found Negative Musculoskeletal: Positive for: Other (Right knee pain ) Physical Exam - Reviewed Nursing Documentation Reviewed: Yes Vital Signs Reviewed: Yes - Physical Exam Appears: Positive for: Non-toxic, No Acute Distress Head Exam: Positive for: ATRAUMATIC, NORMOCEPHALIC Skin: Positive for: Normal Color, Warm, Dry Cardiovascular/Chest: Positive for: Regular Rate, Rhythm. Negative for: Murmur Respiratory: Positive for: Normal Breath Sounds. Negative for: Respiratory Distress Extremity: Positive for: Normal ROM, Tenderness (anterior and superior aspect of right knee ), Swelling (anterior and superior aspect of right knee). Negative for: Calf Tenderness - ECG O2 Sat by Pulse Oximetry: 98 (RA) Pulse Ox Interpretation: Normal Medical Decision Making Medical Decision Making: Time: 15:42 Plan: --Motrin 600 mg PO --X-ray of right knee X-ray is shown to be normal. Patient's right knee was immobilized with ELSI wrap. crutches given with instruction. Patient was referred to see a Dr. Prieto, orthopedist. Scribe Attestation: Documented by Marcelino Daly, acting as a scribe for Tamanna Garcia PA-C. Provider Scribe Attestation: All medical record entries made by the Scribe were at my direction and personally dictated by me. I have reviewed the chart and agree that the record accurately reflects my personal performance of the history, physical exam, medical decision making, and the department course for this patient. I have also personally directed, reviewed, and agree with the discharge instructions and disposition. Disposition - Clinical Impression Clinical Impression: Knee pain - Patient ED Disposition Is Patient to be Admitted: No Counseled Patient/Family Regarding: Studies Performed, Diagnosis, Need For Followup, Rx Given - Disposition Referrals: Sanjay Cartwright MD [Staff Provider] - Disposition: Routine/Home Disposition Time: 16:57 Condition: STABLE Prescriptions: Ibuprofen [Motrin Tab] 600 mg PO TID PRN #15 tab PRN Reason: Pain, Moderate (4-7) Instructions: Knee Pain (DC) Forms: [employer] (Sao Tomean), [facility] ED School/Work Excuse
--- NOTE | 2018-08-29 18:04 | RAD ---
Date of service: 08/29/2018 PROCEDURE: Right Knee Radiographs. HISTORY: Pain. No history of recent/ related trauma provided COMPARISON: None. FINDINGS: BONES: Normal. No fracture. JOINTS: Normal. No osteoarthritis. JOINT EFFUSION: None. OTHER FINDINGS: None. IMPRESSION: Normal radiographs of the right knee.
== END 2018-08-29 17:08 | disposition home or self-care (01) ==
LOC: H.ER 14:15
DX: M25.561 Pain in right knee (principal)

== ENCOUNTER 2018-09-10 15:29 | Emergency (ER) | payer OTHER ==
[2018-09-10 15:29] VITALS: BMI 22.5
[2018-09-10 15:40] VITALS: RESP 16; TEMP 97.7
--- NOTE | 2018-09-10 16:14 | ED PDOC ---
Lower Extremity Pain/Injury Time Seen by Provider: 09/10/18 16:09 Chief Complaint (Nursing): Lower Extremity Problem/Injury Chief Complaint (Provider): Right Knee Pain History Per: Patient History/Exam Limitations: no limitations Onset/Duration Of Symptoms: Days (14 ) Current Symptoms Are (Timing): Still Present Severity: Mild Pain Scale Rating Of: 3 - Knee Description Of Injury: Other (Pt presents to the ED complaining of persisitent medial knee pain on the right knee; pt has been seen and treated in this ED for the same ailment within the last 10 days. 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 Pt denies other complaints, injuries and is currently using OTC medications for relief) Past Medical History Reviewed: Historical Data, Nursing Documentation, Vital Signs Vital Signs: Last Vital Signs Temp 97.7 F 09/10/18 15:38 Pulse 85 09/10/18 15:38 Resp 16 09/10/18 15:38 BP 114/65 09/10/18 15:38 Pulse Ox 99 09/10/18 15:38 - Medical History PMH: Asthma (when child) Denies: Chronic Kidney Disease - Family History Family History: States: Unknown Family Hx - Immunization History Hx Tetanus Toxoid Vaccination: Yes Hx Influenza Vaccination: No Hx Pneumococcal Vaccination: No - Home Medications Home Medications: Ambulatory Orders Medication Instructions Recorded Naproxen 500 mg PO BID #30 tab 03/24/18 Lidocaine 1 each TP DAILY #10 adh..patch 05/01/18 Ibuprofen [Motrin Tab] 600 mg PO TID PRN #15 tab 08/29/18 Diclofenac Sodium [Voltaren] 75 mg PO BID #20 tab 09/10/18 - Allergies Allergies/Adverse Reactions: Allergies Allergy/AdvReac Type Severity Reaction Status Date / Time apple Allergy throat Verified 08/29/18 14:34 swelling banana Allergy throat Verified 08/29/18 14:34 swelling Review of Systems ROS Statement: Except As Marked, All Systems Reviewed And Found Negative Musculoskeletal: Positive for: Leg Pain (right knee- medial side) Physical Exam - Reviewed Nursing Documentation Reviewed: Yes Vital Signs Reviewed: Yes - Physical Exam Appears: Positive for: Well, Non-toxic, No Acute Distress Head Exam: Positive for: ATRAUMATIC, NORMAL INSPECTION Skin: Positive for: Normal Color, Warm, Dry, Diaphoresis Neck: Positive for: Normal, Painless ROM, Supple. Negative for: Decreased ROM Cardiovascular/Chest: Positive for: Regular Rate, Rhythm, Chest Non Tender. Negative for: Edema, Gallop, Bradycardia, Tachycardia, Friction Rub Respiratory: Positive for: Normal Breath Sounds. Negative for: Decreased Breath Sounds, Accessory Muscle Use, Crackles, Rales, Stridor, Wheezing, Respiratory Distress, Plerual Rub Pulses-Carotid (L): 2+ Pulses-Carotid (R): 2+ Pulses-Radial (L): 2+ Pulses-Radial (R): 2+ Extremity: Positive for: Normal ROM, Tenderness (to the right medial knee), Other (anterior and posterior drawer test negative; appley grind positive on a medial roll; medial collateral ligament is tight and does not flex). Negative for: Pedal Edema, Deformity, Swelling DTR - Knee (R): 2+ DTR - Knee (L): 2+ - ECG O2 Sat by Pulse Oximetry: 99 Medical Decision Making Medical Decision Making: discussed the limitiations of the ED Pt had xray of knee last week and it was negative; pt will be referred to a specialist and given diclofenac and flexeril for relief Disposition - Clinical Impression Clinical Impression: Acute knee pain - Patient ED Disposition Is Patient to be Admitted: No Doctor Will See Patient In The: Office Counseled Patient/Family Regarding: Studies Performed, Diagnosis, Need For Followup - Disposition Referrals: Sanjay Cartwright MD [Staff Provider] - Disposition: Routine/Home Disposition Time: 17:03 Condition: STABLE Prescriptions: Diclofenac Sodium [Voltaren] 75 mg PO BID #20 tab Instructions: Knee Pain (DC), Knee Pain Forms: [facility] (Bulgarian), [facility] ED School/Work Excuse
[2018-09-10 17:31] VITALS: BP 110/60; PULSE 82; O2SAT 100
== END 2018-09-10 17:31 | disposition home or self-care (01) ==
LOC: H.ER 15:29
DX: M25.561 Pain in right knee (principal)
CPT/HCPCS: 96372; 99283; J1100; J1885

== ENCOUNTER 2018-12-18 00:21 | Emergency (ER) | payer OTHER ==
[2018-12-18 00:21] VITALS: BMI 22.5
[2018-12-18 00:26] VITALS: BP 130/65; PULSE 75; RESP 16; TEMP 98.2; O2SAT 98
[2018-12-18] MEDS ORDERED: Sodium Chloride 0.9% 1,000 ML IV STA (01:07)
--- NOTE | 2018-12-18 01:27 | ED PDOC ---
HPI: Abdomen Time Seen by Provider: 12/18/18 00:30 Chief Complaint (Nursing): Abdominal Pain Chief Complaint (Provider): Abdominal Pain History Per: Patient History/Exam Limitations: no limitations Onset/Duration Of Symptoms: Hrs (23:00) Additional Complaint(s): 23 y/o male with no significant PMHx presents with vomiting and abdominal pain onset at 23:00 tonight. Patient reports symptoms started after he ate his dinner of fried chicken and [employer] fries. Patient reports associated dizziness. He states he has been having episodes like this regularly for the past few months but has not sought medical care till now. Denies fever, diarrhea, cough, or chest pain. Patient additionally complains of some swelling to his right hand after punching a door a while back. Past Medical History Reviewed: Historical Data, Nursing Documentation, Vital Signs Vital Signs: Last Vital Signs Temp 98.2 F 12/18/18 00:24 Pulse 75 12/18/18 00:24 Resp 16 12/18/18 00:24 BP 130/65 12/18/18 00:24 Pulse Ox 98 12/18/18 00:24 - Medical History PMH: Asthma (when child) Denies: Chronic Kidney Disease - Surgical History Surgical History: No Surg Hx - Family History Family History: States: Unknown Family Hx - Social History Current smoker - smoking cessation education provided: No Alcohol: None Drugs: Denies - Immunization History Hx Tetanus Toxoid Vaccination: Yes Hx Influenza Vaccination: No Hx Pneumococcal Vaccination: No - Home Medications Home Medications: Ambulatory Orders Medication Instructions Recorded Naproxen 500 mg PO BID #30 tab 03/24/18 Lidocaine 1 each TP DAILY #10 adh..patch 05/01/18 Ibuprofen [Motrin Tab] 600 mg PO TID PRN #15 tab 08/29/18 Diclofenac Sodium [Voltaren] 75 mg PO BID #20 tab 09/10/18 Esomeprazole Magnesium [Nexium] 20 mg PO QAM #30 ecc 12/18/18 Ondansetron ODT [Zofran ODT] 4 mg PO Q6 PRN #8 odt 12/18/18 - Allergies Allergies/Adverse Reactions: Allergies Allergy/AdvReac Type Severity Reaction Status Date / Time apple Allergy throat Verified 08/29/18 14:34 swelling banana Allergy throat Verified 08/29/18 14:34 swelling Review of Systems ROS Statement: Except As Marked, All Systems Reviewed And Found Negative Constitutional: Negative for: Fever Cardiovascular: Negative for: Chest Pain Respiratory: Negative for: Cough Gastrointestinal: Positive for: Nausea, Vomiting, Abdominal Pain. Negative for: Diarrhea Physical Exam - Reviewed Nursing Documentation Reviewed: Yes Vital Signs Reviewed: Yes - Physical Exam Appears: Positive for: Well, Non-toxic, No Acute Distress Head Exam: Positive for: ATRAUMATIC, NORMAL INSPECTION, NORMOCEPHALIC Skin: Positive for: Normal Color, Warm, DRY Eye Exam: Positive for: EOMI, Normal appearance, PERRL ENT: Positive for: Normal ENT Inspection Neck: Positive for: Normal, Painless ROM Cardiovascular/Chest: Positive for: Regular Rate, Rhythm. Negative for: Murmur Respiratory: Positive for: Normal Breath Sounds. Negative for: Respiratory D istress Gastrointestinal/Abdominal: Positive for: Tenderness (RUQ) Back: Positive for: Normal Inspection Extremity: Positive for: Normal ROM, Swelling (3rd metacarpal of right hand). Negative for: Pedal Edema, Deformity Neurological/Psych: Positive for: Awake, Alert, Normal Tone. Negative for: Mot or/Sensory Deficits - Laboratory Results Result Diagrams: 12/18/18 01:41 12/18/18 01:41 - ECG O2 Sat by Pulse Oximetry: 98 (RA) Pulse Ox Interpretation: Normal Medical Decision Making Medical Decision Making: Time: 01:07 Impression: 23 y/o with RUQ tenderness, nausea and vomiting Initial Plan: * Labs * IV Fluids * Toradol 30 mg * Zofran 4 mg * US Gallbladder 02:59 US Gallbladder Findings: Liver measures 16.6 cm. Normal gallbladder wall thickness measuring 1.8 mm. No evidence of cholelithiasis. Nondilated common bile duct measuring 4.1 mm. Unremarkable pancreas. Unremarkable IAC. Unremarkable aorta. Unremarkable right kidney. Impression: Unremarkable exam. 04:00 Labs no clinically significant abnormalities. Patient is stable for discharge. Diagnosis is gastritis. Scribe Attestation: Documented by Zac Sanderson, acting as a scribe forFelipe Lundberg MD. Provider Scribe Attestation: All medical record entries made by the Scribe were at my direction and personally dictated by me. I have reviewed the chart and agree that the record accurately reflects my personal performance of the history, physical exam, medical decision making, and the department course for this patient. I have also personally directed, reviewed, and agree with the discharge instructions and disposition. Disposition - Clinical Impression Clinical Impression: Gastritis - Patient ED Disposition Is Patient to be Admitted: No - Disposition Referrals: Omega Hylton MD, PhD [Staff Provider] - Disposition: Routine/Home Disposition Time: 04:00 Condition: STABLE Additional Instructions: JUDE GARCÍA, thank you for letting us take care of you today. Your provider was Felipe Lundberg MD and you were treated for VOMITING. The emergency medical care you received today was directed at your acute symptoms. If you were prescribed any medication, please fill it and take as directed. It may take several days for your symptoms to resolve. Return to the Emergency Department if your symptoms worsen, do not improve, or if you have any other problems. Please contact your doctor or call one of the physicians/clinics you have been referred to that are listed on the Patient Visit Information form that is incl uded in your discharge packet. Bring any paperwork you were given at discharge with you along with any medications you are taking to your follow up visit. Our treatment cannot replace ongoing medical care by a primary care provider outside of the emergency department. Thank you for allowing the [facility] hospital team to be part of your care today. If you had an X-Ray or CT scan: A Radiologist will review the ED reading if any change in treatment is needed we will contact you. If you had a blood, urine, or wound culture: It will take several days for the results, if any change in treatment is needed we will contact you. If you had an STI test: It will take 48 hours for the results. Please call after 1 week if you have not heard back. Prescriptions: Esomeprazole Magnesium [Nexium] 20 mg PO QAM #30 ecc Ondansetron ODT [Zofran ODT] 4 mg PO Q6 PRN #8 odt PRN Reason: Nausea/Vomiting Instructions: Gastritis Forms: [facility] (Pashto)
[2018-12-18 01:47] LABS: BASO % 0.6 % (0.0-2.0); EOS # 0.2 K/uL (0.0-0.7); EOS % 3.6 % (0.0-4.0); LYMPH % 45.8 % (20.0-40.0); MEAN CELL VOLUME 85.6 fl (80.0-94.0); MEAN CORPUSCULAR HEMOGLOBIN 29.1 pg (27.0-31.0); MEAN PLATELET VOLUME 7.4 fl (7.2-11.7); MONO # 0.4 K/uL (0.0-0.8); MONO % 9.1 % (0.0-10.0); NEUT # 1.8 K/uL (1.8-7.0); NEUT % 40.9 % (50.0-75.0); RBC 4.81 Mil/uL (4.40-5.90); RED CELL DISTRIBUTION WIDTH 13.8 % (11.5-14.5); WHITE BLOOD COUNT 4.4 K/uL (4.8-10.8)
[2018-12-18 01:53] LABS: ALB/GLOB RATIO 1.3 (1.0-2.1); ALBUMIN 4.3 g/dL (3.5-5.0); ALT/SGPT 26 U/L (21-72); AST/SGOT 32 U/L (17-59); BLOOD UREA NITROGEN 16 mg/dl (9-20); CALCIUM 9.9 mg/dL (8.4-10.2); GFR NON-AFRICAN AMERICAN > 60
[2018-12-18 02:09] LABS: LIPASE 42 U/L (23-300)
[2018-12-18 02:18] LABS: SQUAMOUS EPITHIAL < 1 /hpf (0-5); URINE BILIRUBIN NEGATIVE (NEGATIVE); URINE BLOOD NEGATIVE (NEGATIVE); URINE CLARITY CLEAR (Clear); URINE COLOR YELLOW (YELLOW); URINE GLUCOSE (UA) NEG (NEGATIVE); URINE LEUKOCYTE ESTERASE NEG Leu/uL (Negative); URINE PROTEIN 30 mg/dL (NEGATIVE)
--- NOTE | 2018-12-18 09:59 | US ---
Date of service: 12/18/2018 HISTORY: abd pain COMPARISON: None. TECHNIQUE: Sonographic evaluation of the right upper quadrant of the abdomen. FINDINGS: LIVER: Measures 16.6 cm in length. Normal echogenicity of the liver parenchyma. No mass. No intrahepatic bile duct dilatation. GALLBLADDER: The gallbladder is partially contracted. No wall thickening, pericholecystic fluid or positive sonographic Rubio's sign. No gallstones COMMON BILE DUCT: Measures 4.4 mm. No stones. No dilatation. PANCREAS: Unremarkable as visualized. No mass. No ductal dilatation. RIGHT KIDNEY: Measures 11.9 cm in length. Normal echogenicity. No calculus, mass, or hydronephrosis. AORTA: No aneurysmal dilatation. IVC: Unremarkable. OTHER FINDINGS: None . IMPRESSION: No evidence of cholelithiasis or biliary dilatation. The gallbladder is partially contracted which may be related to nonfasting status. If clinically indicated repeat ultrasound in a nonfasting state may be performed for further evaluation. A preliminary report was provided by [facility].
--- NOTE | 2018-12-18 14:24 | RAD ---
Date of service: 12/18/2018 PROCEDURE: Radiographs of the right hand HISTORY: pain COMPARISON: None. FINDINGS: BONES: Bone alignment and mineralization are normal. There is no acute displaced fracture or bone destruction. JOINTS: The joint spaces are preserved. SOFT TISSUES: Normal. OTHER FINDINGS: None. IMPRESSION: No acute displaced fracture or dislocation.
== END 2018-12-18 04:08 | disposition home or self-care (01) ==
LOC: H.ER 00:21
DX: K29.70 Gastritis, unspecified, without bleeding (principal)
CPT/HCPCS: 73130; 76705; 80053; 81003; 83690; 85025; 96374; 99283; J1885; J2405; J2765; J7030